=== PATIENT | male | born 1955 | race Two or more races ===

== ENCOUNTER 2017-11-14 21:27 | Emergency (ER) | payer MEDICAID ==
[~2017-11-14] VITALS: Ht 167.6 cm; Wt 80.7 kg
[~2017-11-14 21:27] MED LIST: IBUPROFEN600 MG PO
[2017-11-14] MEDS ORDERED: NKM (21:37)
--- NOTE | 2017-11-14 22:02 | Emergency Room Report ---
History of Present Illness General Chief Complaint: Back Pain-No Injury Source: Patient Present Illness HPI Patient presents with complaints of right upper back pain Reports pain in the rhomboid region between the scapula and the spinal cord patient has pain with movement of his arm He reports the pain started on Tuesday He feels that he slept the wrong way And has been trying to get comfortable since then Denies any chest pain or shortness of breath denies any abdominal pain Patient had reported that he had a stroke several months ago however on further questioning he had some problems with his facial area along with eye that remained open and the patient was discharged after few hours in the emergency room Allergies: Coded Allergies: No Known Allergies (Verified , 09/22/11) Patient History Past Medical History: see triage record Pertinent Family History: none Reviewed Nursing Documentation: PMH: Agreed; PSxH: Agreed Nursing Documentation-PMH Hx Hypertension: Yes Hx Diabetes: Yes Hx Cancer: Yes - Colon Ca Hx Cerebrovascular Accident: Yes - 05/2017 Review of Systems All Other Systems: negative except mentioned in HPI Physical Exam Vital Signs Date Time Temp Pulse Resp B/P (MAP) Pulse Ox O2 Delivery O2 Flow Rate FiO2 11/14/17 21:32 98.1 67 14 212/103 97 Room Air 98.1 Sp02 EP Interpretation: reviewed, normal General Appearance: well appearing, no apparent distress Head: normocephalic, atraumatic Eyes: bilateral eye PERRL, bilateral eye EOMI ENT: hearing grossly normal, normal pharynx, TMs + canals normal, uvula midline Neck: full range of motion, supple, no meningismus, no bony tend Respiratory: lungs clear, normal breath sounds, no rhonchi, no respiratory distress, no retraction, no accessory muscle use Cardiovascular #1: normal peripheral pulses, regular rate, rhythm, no edema, no gallop, no JVD, no murmur Gastrointestinal: normal bowel sounds, non tender, soft, no mass, no organomegaly, non-distended, no guarding, no hernia, no pulsatile mass, no rebound Genitourinary: no CVA tenderness Musculoskeletal: other - Patient has specific discomfort on palpation of the right rhomboid region Neurologic: oriented x3, responsive, 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, motor strength/ tone normal, sensory intact Psychiatric: mood/affect normal Skin: normal color, no rash, warm/dry, palpation normal Lymphatic: normal inspection, no adenopathy Medical Decision Making Diagnostic Impression: Primary Impression: Back pain ER Course Patient presents with fairly specific pinpoint discomfort musculoskeletal and description However given the hypertensive presentation given the patient's previous history Cardiac pathology, cardiovascular etiology was entertained Patient had fairly extensive blood work and imaging After further discussion patient also reports being diabetic, and also has known about being hypertensive however is not compliant with medication Extensive workup including EKG show normal results Patient has some improvement with discomfort Further CT imaging has not been obtained and patient will have initial and several outpatient trial Labs Test 11/14/17 22:40 White Blood Count 6.4 K/UL (4.8-10.8) Red Blood Count 5.50 M/UL (4.70-6.10) Hemoglobin 16.1 G/DL (14.2-18.0) Hematocrit 47.7 % (42.0-52.0) Mean Corpuscular Volume 87 FL (80-99) Mean Corpuscular Hemoglobin 29.3 PG (27.0-31.0) Mean Corpuscular Hemoglobin Concent 33.9 G/DL (32.0-36.0) Red Cell Distribution Width 11.6 % (11.6-14.8) Platelet Count 163 K/UL (150-450) Mean Platelet Volume 10.3 FL (6.5-10.1) Neutrophils (%) (Auto) 61.7 % (45.0-75.0) Lymphocytes (%) (Auto) 25.9 % (20.0-45.0) Monocytes (%) (Auto) 7.9 % (1.0-10.0) Eosinophils (%) (Auto) 3.0 % (0.0-3.0) Basophils (%) (Auto) 1.6 % (0.0-2.0) Sodium Level 133 MMOL/L (136-145) Potassium Level 3.8 MMOL/L (3.5-5.1) Chloride Level 99 MMOL/L (98-107) Carbon Dioxide Level 26 MMOL/L (21-32) Blood Urea Nitrogen 28 mg/dL (7-18) Creatinine 1.3 MG/DL (0.55-1.30) Estimat Glomerular Filtration Rate 56.3 mL/min (>60) Glucose Level 471 MG/DL (74-106) Calcium Level 8.0 MG/DL (8.5-10.1) Total Bilirubin 0.3 MG/DL (0.2-1.0) Aspartate Amino Transf (AST/SGOT) 12 U/L (15-37) Alanine Aminotransferase (ALT/SGPT) 23 U/L (12-78) Alkaline Phosphatase 180 U/L (46-116) Total Creatine Kinase 79 U/L (26-308) Creatine Kinase MB 1.8 NG/ML (0.0-3.6) Creatine Kinase MB Relative Index 2.2 Troponin I 0.000 ng/mL (0.000-0.056) Total Protein 6.9 G/DL (6.4-8.2) Albumin 3.0 G/DL (3.4-5.0) Globulin 3.9 g/dL Albumin/Globulin Ratio 0.8 (1.0-2.7) EKG Diagnostic Results Rate: normal Rhythm: NSR ST Segments: no acute changes Rhythm Strip Diag. Results EP Interpretation: yes Rate: 78 Rhythm: NSR, no PVC's, no ectopy Chest X-Ray Diagnostic Results Chest X-Ray Diagnostic Results : Chest X-Ray Ordered: Yes Indication: Chest Pain EP Interpretation: Yes Interpretation: no consolidation, no effusion, no pneumothorax Impression: No acute disease Electronically Signed by: Yarelis Lord DO Last Vital Signs Date Time Temp Pulse Resp B/P (MAP) Pulse Ox O2 Delivery O2 Flow Rate FiO2 11/14/17 21:32 98.1 67 14 212/103 97 Room Air 98.1 Status: improved Disposition: HOME, SELF-CARE Condition: Improved Scripts Lisinopril (LISINOPRIL*) 5 Mg Tablet 5 MG ORAL DAILY, #20 TAB Prov: Yarelis Lord DO 11/15/17 Metformin Hcl* (METFORMIN HCL*) 500 Mg Tablet 500 MG ORAL TWICE A DAY, #30 TAB Prov: Yarelis Lord DO 11/15/17 Methocarbamol* (ROBAXIN-750*) 750 Mg Tablet 750 MG PO TID, #21 TAB 0 Refills Prov: Yarelis Lord DO 11/14/17 Ibuprofen* (MOTRIN*) 600 Mg Tablet 600 MG ORAL Q8H PRN for For Pain, #20 TAB 0 Refills Prov: Yarelis Lord DO 11/14/17 Additional Instructions: Patient is provided with the discharge instructions notified to follow up with primary doctor in the next 2-3 days otherwise return to the er with any worsening symptoms. Please note that this report is being documented using [employer] technology. This can lead to erroneous entry secondary to incorrect interpretation by the dictating instrument. Yarelis Lord DO Nov 14, 2017 22:02
[2017-11-14] MEDS: Norco 5mg/325mg tab ORAL ONE (22:06)
[2017-11-14] MEDS: Ketorolac 60mg Inj IM ONE (22:07)
[2017-11-14 23:18] LABS: BASOPHILS % (AUTO) 1.6 % (0.0-2.0); HEMATOCRIT 47.7 % (42.0-52.0); HEMOGLOBIN 16.1 G/DL (14.2-18.0); LYMPHOCYTES % (AUTO) 25.9 % (20.0-45.0); MEAN CORPUSCULAR VOLUME 87 FL (80-99); MONOCYTES % (AUTO) 7.9 % (1.0-10.0); NEUTROPHILS % (AUTO) 61.7 % (45.0-75.0); PLATELET COUNT 163 K/UL (150-450); RED CELL DISTRIBUTION WIDTH 11.6 % (11.6-14.8); WHITE BLOOD COUNT 6.4 K/UL (4.8-10.8)
[2017-11-14] MEDS ORDERED: IBUPROFEN600 MG ORAL (23:44)
[2017-11-14] MEDS ORDERED: ROBAXIN-750750 MG PO (23:44)
[2017-11-15 00:04] LABS: ALANINE AMINOTRANSFERASE 23 U/L (12-78); ALBUMIN/GLOBULIN RATIO 0.8 (1.0-2.7); ALKALINE PHOSPHATASE 180 U/L (46-116); ASPARTATE AMINO TRANSFERASE 12 U/L (15-37); BILIRUBIN,TOTAL 0.3 MG/DL (0.2-1.0); BLOOD UREA NITROGEN 28 mg/dL (7-18); CARBON DIOXIDE 26 MMOL/L (21-32); CKMB 1.8 NG/ML (0.0-3.6); CREATINE KINASE 79 U/L (26-308); CREATININE 1.3 MG/DL (0.55-1.30)
[2017-11-15 00:24] LABS: CHLORIDE 99 MMOL/L (98-107); POTASSIUM 3.8 MMOL/L (3.5-5.1); SODIUM 133 MMOL/L (136-145)
[2017-11-15 00:39] VITALS: BP 185/105
[2017-11-15] MEDS ORDERED: LISINOPRIL5 MG ORAL (00:40)
[2017-11-15] MEDS ORDERED: METFORMIN HCL500 M1 ORAL (00:40)
[2017-11-15 00:50] VITALS: BP 185/105
--- NOTE | 2017-11-15 16:57 | Diagnostic Imaging Report ---
Indication: Chest pain Technique: One view of the chest Comparison: 11/16/2010 Findings: There is a calcified granuloma in the left midlung. A calcified granuloma is seen in the right upper lobe. The lungs and pleural spaces are otherwise clear. Heart size is normal. The aorta is tortuous Impression: Evidence old granulomatous disease. Otherwise negative
--- NOTE | 2017-11-15 17:41 | Cardiology Report ---
APPROVED REPORT EKG Measurement Heart [id number] Normal sinus rhythm Normal ECG
== END 2017-11-15 00:50 | disposition home or self-care (01) ==
LOC: EMR 21:51
DX: M54.6 Pain in thoracic spine (principal); I10 Essential (primary) hypertension; E11.9 Type 2 diabetes mellitus without complications; Z85.038 Personal history of other malignant neoplasm of large intestine; Z86.73 Personal history of transient ischemic attack (TIA), and cerebral infarction without residual deficits
CPT/HCPCS: 36415; 71045; 80053; 82550; 82553; 82962; 84484; 85025; 93005; 96372; 96374; 99284; J0360

== ENCOUNTER 2018-08-17 12:16 | Emergency (ER) | payer MEDICAID ==
[~2018-08-17] VITALS: Ht 165.1 cm; Wt 65.8 kg
[~2018-08-17 12:16] MED LIST changes: +IBUPROFEN600 MG ORAL; +LISINOPRIL5 MG ORAL; +METFORMIN HCL500 M1 ORAL; +NKM; +ROBAXIN-750750 MG PO
[2018-08-17 12:33] VITALS: BP 174/91
--- NOTE | 2018-08-17 12:38 | NUR ---
ED Nurse Note: Pt. AAOx4. ambulatory.came in to ER with son due to feeling dizzy. Per son, pt. fell earlier but was able to grasp on something to prevent an actual fall. Accuchek at the bedside is 303. Per son. pt. is not compliant with his medications for DM and HTN
[2018-08-17 13:25] LABS: EOSINOPHILS % (AUTO) 0.6 % (0.0-3.0); HEMATOCRIT 43.7 % (42.0-52.0); HEMOGLOBIN 14.7 G/DL (14.2-18.0); LYMPHOCYTES % (AUTO) 10.9 % (20.0-45.0); MEAN CORPUSCULAR VOLUME 86 FL (80-99); MONOCYTES % (AUTO) 5.5 % (1.0-10.0); NEUTROPHILS % (AUTO) 81.9 % (45.0-75.0); PLATELET COUNT 180 K/UL (150-450); RED BLOOD COUNT 5.09 M/UL (4.70-6.10); RED CELL DISTRIBUTION WIDTH 11.7 % (11.6-14.8); WHITE BLOOD COUNT 7.4 K/UL (4.8-10.8)
[2018-08-17 13:28] LABS: ANION GAP 8 mmol/L (5-15); BLOOD UREA NITROGEN 26 mg/dL (7-18); CALCIUM 8.9 MG/DL (8.5-10.1); CARBON DIOXIDE 26 MMOL/L (21-32); CHLORIDE 98 MMOL/L (98-107); CREATININE 1.2 MG/DL (0.55-1.30); POTASSIUM 3.9 MMOL/L (3.5-5.1); SODIUM 132 MMOL/L (136-145)
[2018-08-17 13:33] LABS: ALANINE AMINOTRANSFERASE 19 U/L (12-78); ALBUMIN 3.3 G/DL (3.4-5.0); ALBUMIN/GLOBULIN RATIO 0.9 (1.0-2.7); ALKALINE PHOSPHATASE 163 U/L (46-116); ASPARTATE AMINO TRANSFERASE 8 U/L (15-37); BILIRUBIN,TOTAL 0.4 MG/DL (0.2-1.0); CREATINE KINASE 112 U/L (26-308)
[2018-08-17 14:22] VITALS: BP 142/89
[2018-08-17] MEDS ORDERED: LISINOPRIL5 MG ORAL (14:25)
[2018-08-17] MEDS ORDERED: METFORMIN HCL500 M1 ORAL (14:25)
--- NOTE | 2018-08-17 14:25 | Emergency Room Report ---
History of Present Illness General Chief Complaint: Vertigo Source: Patient Present Illness HPI 62-year-old male presents to the emergency department for intermittent episodes of dizziness and pressure in the right ear for approximately 15 days. Patient also reports some weakness and fatigue. Patient has brought by his son who states that he is noncompliant with diabetic medications as well as high blood pressure medications. Patient denies laceration of his dizziness upon positional changes. Patient states that he normally notices when he goes from sitting to standing. He denies sensations of the room spinning around him he describes feeling off balance as he attempts to walk which quickly resolves. He denies recent head injury, the faculty with speech, difficulty with swallowing, weakness unilaterally in any of the extremities, episodes of facial paralysis/drooping. Denies chest pain, shortness of breath or paresthesias. He denies sudden onset of headaches. Allergies: Coded Allergies: No Known Allergies (Verified , 09/22/11) Patient History Past Medical History: see triage record Past Surgical History: none Pertinent Family History: none Reviewed Nursing Documentation: PMH: Agreed; PSxH: Agreed Nursing Documentation-PMH Past Medical History: No History, Except For Hx Hypertension: Yes Hx Diabetes: Yes Hx Cancer: Yes - Colon Ca Hx Cerebrovascular Accident: Yes - 05/2017 Review of Systems All Other Systems: negative except mentioned in HPI Physical Exam Vital Signs Date Time Temp Pulse Resp B/P (MAP) Pulse Ox O2 Delivery O2 Flow Rate FiO2 08/17/18 12:20 97.9 96 20 177/108 97 Room Air Sp02 EP Interpretation: reviewed, normal General Appearance: no apparent distress, alert, GCS 15, non-toxic Head: normocephalic, atraumatic Eyes: bilateral eye normal inspection, bilateral eye PERRL ENT: hearing grossly normal, normal voice Neck: full range of motion Respiratory: chest non-tender, lungs clear, normal breath sounds, speaking full sentences Cardiovascular #1: regular rate, rhythm, no edema, normal capillary refill Gastrointestinal: normal bowel sounds, non tender, soft, no guarding Musculoskeletal: back normal, gait/station normal, normal range of motion, non- tender Neurologic: alert, oriented x3, responsive, motor strength/tone normal, sensory intact, speech normal, other - no nystagmus, negative stevie-hallpike exam. no ataxia, normal gait, grossly normal Psychiatric: judgement/insight normal Skin: normal color, no rash, warm/dry, well hydrated Medical Decision Making PA Attestation Dr. langford is my supervising Physician whom patient management has been discussed with. Diagnostic Impression: Primary Impression: Dizzy spells Additional Impressions: Hyperglycemia Nonadherence to medication ER Course 62-year-old male presents to the emergency department for intermittent episodes of dizziness and pressure in the right ear for approximately 15 days. Patient also reports some weakness and fatigue. Patient has brought by his son who states that he is noncompliant with diabetic medications as well as high blood pressure medications. Patient denies laceration of his dizziness upon positional changes. Patient states that he normally notices when he goes from sitting to standing. He denies sensations of the room spinning around him he describes feeling off balance as he attempts to walk which quickly resolves. He denies recent head injury, the faculty with speech, difficulty with swallowing, weakness unilaterally in any of the extremities, episodes of facial paralysis/drooping. Denies chest pain, shortness of breath or paresthesias. He denies sudden onset of headaches. Ddx considered but are not limited to Mnire's, BPPV, labrinitis, cerebellar stroke, hypovolemia, cardiac cause. Vital signs: are WNL, pt. is afebrile H&PE are most consistent with possible orthostatic dizziness, will also do cardiac evaluation. No focal deficit to indicate TIA or CVA. No vertical nystagmus. Better after IV fluid and Ativan. Because of lack of focality and red flags, I see no need for CT scan. We'll discharge home. ORDERS: -CBC: unremarkable -CMP: sugar 332, mildly low na+ -Troponins, CK- all negative -OrthoStatic VS: negative ED INTERVENTIONS: - 1 Liter NS -I do not identify an emergent condition at this time. With current presentation , pt. is stable for close outpatient follow up and conservative treatment. D/ w pt. to return promptly to ED with worsening or new symptoms.- Pt. verbalizes' understanding and agreement with proposed treatment plan. DISCHARGE: At this time pt. is stable for d/c to home. Will provide printed patient care instructions, and any necessary prescriptions. Care plan and follow up instructions have been discussed with the patient prior to discharge. Labs Test 08/17/18 13:07 White Blood Count 7.4 K/UL (4.8-10.8) Red Blood Count 5.09 M/UL (4.70-6.10) Hemoglobin 14.7 G/DL (14.2-18.0) Hematocrit 43.7 % (42.0-52.0) Mean Corpuscular Volume 86 FL (80-99) Mean Corpuscular Hemoglobin 28.9 PG (27.0-31.0) Mean Corpuscular Hemoglobin Concent 33.7 G/DL (32.0-36.0) Red Cell Distribution Width 11.7 % (11.6-14.8) Platelet Count 180 K/UL (150-450) Mean Platelet Volume 10.6 FL (6.5-10.1) Neutrophils (%) (Auto) 81.9 % (45.0-75.0) Lymphocytes (%) (Auto) 10.9 % (20.0-45.0) Monocytes (%) (Auto) 5.5 % (1.0-10.0) Eosinophils (%) (Auto) 0.6 % (0.0-3.0) Basophils (%) (Auto) 1.0 % (0.0-2.0) Sodium Level 132 MMOL/L (136-145) Potassium Level 3.9 MMOL/L (3.5-5.1) Chloride Level 98 MMOL/L (98-107) Carbon Dioxide Level 26 MMOL/L (21-32) Anion Gap 8 mmol/L (5-15) Blood Urea Nitrogen 26 mg/dL (7-18) Creatinine 1.2 MG/DL (0.55-1.30) Estimat Glomerular Filtration Rate > 60 mL/min (>60) Glucose Level 332 MG/DL (74-106) Calcium Level 8.9 MG/DL (8.5-10.1) Total Bilirubin 0.4 MG/DL (0.2-1.0) Aspartate Amino Transf (AST/SGOT) 8 U/L (15-37) Alanine Aminotransferase (ALT/SGPT) 19 U/L (12-78) Alkaline Phosphatase 163 U/L (46-116) Total Creatine Kinase 112 U/L (26-308) Troponin I 0.000 ng/mL (0.000-0.056) Total Protein 7.0 G/DL (6.4-8.2) Albumin 3.3 G/DL (3.4-5.0) Globulin 3.7 g/dL Albumin/Globulin Ratio 0.9 (1.0-2.7) EKG Diagnostic Results EP Interpretation: Dr. Martin Rate: normal Rhythm: NSR ST Segments: no acute changes ASA given to the pt in ED: No PA Scribe Text This Interpretation was scribed by KRISS Blanco. Last Vital Signs Date Time Temp Pulse Resp B/P (MAP) Pulse Ox O2 Delivery O2 Flow Rate FiO2 08/17/18 12:33 97.9 87 16 174/91 100 Room Air Disposition: HOME, SELF-CARE Condition: Stable Scripts Metformin Hcl* (METFORMIN HCL*) 500 Mg Tablet 500 MG ORAL TWICE A DAY for 30 Days, #60 TAB Prov: Kristyn Blanco 08/17/18 Lisinopril (LISINOPRIL*) 5 Mg Tablet 5 MG ORAL DAILY, #30 TAB Prov: Kristyn Blanco 08/17/18 Referrals: [facility]ERR[facility] (PCP) Patient Instructions: Dizziness, [id number], Hyperglycemia, [id number] Additional Instructions: Take medications as directed. Follow up with a Primary Care Provider in 3-5 days, even if your symptoms have resolved. --Please review list of primary care clinics, if you do not already have a primary care provider Return sooner to ED if new symptoms occur, or current symptoms become worse. - Please note that this Emergency Department Report was dictated using [employer] media pl[employer] technology software, occasionally this can lead to erroneous entry secondary to interpretation by the dictation equipment. Kristyn Blanco Aug 17, 2018 14:24
[2018-08-17 14:39] VITALS: BP 142/89
--- NOTE | 2018-08-17 14:39 | NUR ---
ED Nurse Note: Pt. AAOx4. ambulatory. Left with steady gait. Pt. education done regarding d/c papers and prescriptions.Pt. verbalized the understanding of the teaching. IV access removed. ID armband removed.
== END 2018-08-17 14:40 | disposition home or self-care (01) ==
LOC: EMR 12:50
DX: R42 Dizziness and giddiness (principal); Z91.14 Patient's other noncompliance with medication regimen; E11.65 Type 2 diabetes mellitus with hyperglycemia; I10 Essential (primary) hypertension; Z85.038 Personal history of other malignant neoplasm of large intestine
CPT/HCPCS: 36415; 80053; 82550; 84484; 85025; 93005; 96360; 99284